=== PATIENT | male | born 1945 | race African-American/Black ===

== ENCOUNTER 2016-11-21 19:57 | Emergency (ER) | payer OTHER ==
[2016-11-21 21:18] LABS: MANUAL DIFF NEEDED? NO
[2016-11-21 21:19] LABS: BASO% 0.6 % (0.0-0.8); EOS# 0.12 X1000 (0.0-0.7); EOS% 3.4 % (0.0-10.0); HEMATOCRIT 41.6 % (42.0-52.0); HEMOGLOBIN 14.3 g/dL (14.0-18.0); LYMPH# 1.42 X1000 (1.2-3.4); LYMPH% 40.3 % (20.5-51.1); MCH 28.9 PG (27-31); MCHC 34.4 g/dL (33-37); MCV 84.2 FL (81-99); MONO# 0.29 X1000 (0.11-0.59); MONO% 8.2 % (1.7-9.3); MPV 9.9 FL (7.4-10.4); NEUT% 47.5 % (42.2-75.2); PLT 171 X1000 (130-400); RBC 4.94 XMIL (4.7-6.1)
[2016-11-21 21:35] LABS: AGAP 9; ALBUMIN 4.3 g/dL (3.5-5.0); ALKALINE PHOSPHATASE 63 U/L (32-122); BUN 11 mg/dL (8-22); CALCIUM 9.4 mg/dL (8.8-10.2); CHLORIDE 105 mmol/L (98-107); COSMO 280; GOT 28 U/L (10-34); GPT 22 U/L (10-44); POTASSIUM 3.5 mmol/L (3.5-5.1); SODIUM 141 mmol/L (136-145); TCO2 27 mmol/L (25-35); TOTAL PROTEIN 6.9 g/dL (6.3-8.3)
[2016-11-21 21:36] LABS: CK PROFILE 310 U/L (24-204)
--- NOTE | 2016-11-21 21:47 | PROVIDER DOCUMENTATION ---
HPI-General Adult - General Chief Complaint: B/P Problems Stated Complaint: ELEVATED B/P Time Seen by Provider: 11/21/16 21:24 Source: patient Allergies/Adverse Reactions: Patient Allergies Allergy/AdvReac Type Severity Reaction Status Date / Time muscle relaxer AdvReac DIZZINESS Uncoded 11/21/16 20:08 Home Medications: Home Medication List Medication Instructions Recorded Confirmed Last Taken Type Bisoprolol Fumarate/Hctz [Ziac 1 tab PO DAILY 11/28/14 11/21/16 04/30/16 History 10-6.25 mg Tablet] Potassium Chloride E.r. [Micro-K] 1 tab PO DAILY 11/28/14 11/21/16 04/30/16 History Amlodipine [Norvasc] 5 mg PO DAILY 07/20/15 11/21/16 04/30/16 History Diphenoxylate/Atropine [Lomotil] 1 each PO 4XDAY PRN PRN #20 tablet 06/19/16 Unknown Rx Promethazine [Phenergan] 1 - 2 tab PO Q6H PRN PRN #18 tablet 06/19/16 Unknown Rx - History of Present Illness -Gen Adult Nature of Presenting Problems: 71 YOBLKM WITH HX OF HTN, PRESENTS TO EED WITH C/O PT STTES HE MISSED HIS MORNING BLOOD PRESSURE MEDS, AND HE FELT LIKER HIS B/P WAS HIGH AND CHECKED B/P AND NOTICED IT WAS ELEVATED AND CAME TO THE ED TO BE CHECKED OUT. PT STATES HE TOOK HIS MEDS ABOUT 30 MINUTES TRENCH [employer] ED. Location of Pain/Injury: reports: none Pain Radiation: reports: no radiation Quality of Pain: reports: none Onset/Duration: reports: 1-3 hours ago Context/Activities at Onset: reports: none Modifying Factors: improves with: nothing Similar Symptoms Previously?: No Recently seen or treated by another doctor?: No Review of Systems - Adult - REVIEW OF SYSTEMS - ADULT Constitutional: denies: chills, fever Eyes: reports: no symptoms reported Ears, Nose, Mouth & Throat: reports: no symptoms reported Cardiovascular: denies: chest pain, palpitations, syncope Respiratory: denies: cough, shortness of breath, wheezing Gastrointestinal: denies: abdominal pain, diarrhea, nausea, vomiting Genitourinary: reports: no symptoms reported Musculoskeletal: denies: back pain, neck pain Integumentary: reports: no symptoms reported Neurological: denies: dizziness/vertigo, headache/migraines, syncope Psychiatric: reports: no symptoms reported Endocrine: reports: no symptoms reported Hematologic/Lymphatic: reports: no symptoms reported Allergic/Immunologic: reports: no symptoms reported All Other Systems: Reviewed and Negative Past History - Adult - PAST MEDICAL HISTORY-ADULT Review of Records: reports: Nursing Assessment Review, Medications Reviewed Cardiovascular: reports: HTN Gastrointestinal: reports: ulcer Genitourinary: reports: prostate cancer - PRIOR SURGERIES/PROCEDURES Surgical/Procedure History: reports: none, reviewed, not pertinent, other ( prostatectomy) - PRIOR HOSPITALIZATIONS Prior Hospitalizations: reports: for other non-related - IMMUNIZATION STATUS Childhood Immunizations: See Nurse Assessment Flu Vaccine: See Nurse Assessment - FAMILY HISTORY Family History: diabetes, HTN - SOCIAL HISTORY Smoking: denies Substance Use: denies Alcohol Use Frequency: never Living Situation: alone Physical Exam-General - CONSTITUTIONAL General Appearance: alert, mild distress - EYES Eyes: PERRL/EOMI, pink conjunctivae - HEAD, EARS, NOSE, MOUTH & THROAT HENMT: normocephalic/atraumatic, moist mucous membranes - NECK Neck: non-tender, full range of motion, supple - RESPIRATORY Respiratory: chest non-tender, lungs clear, normal breath sounds - CARDIOVASCULAR Cardiovascular: normal peripheral pulses, tachycardia - GASTROINTESTINAL (ABDOMEN) Abdominal Exam: normal bowel sounds, non tender, soft - LYMPHATIC Lymphatic: no adenopathy - MUSCULOSKELETAL Back Exam: normal inspection, no CVA tenderness, no vertebral tenderness Extremity: normal range of motion, non-tender - SKIN Integumentary: normal color, normal turgor, warm/dry - NEUROLOGIC Neurologic: grossly normal - PSYCHIATRIC Psych/Mental Status: oriented x 3 Progress - PLAN OF CARE/RESULTS Progress/Plan/Lab Results: Laboratory Tests 11/21/16 11/21/16 11/21/16 21:15 21:15 21:15 WBC RBC Hgb Hct MCV MCH MCHC RDW Std Deviation Plt Count MPV Immature Gran % (Auto) Neut % (Auto) Lymph % (Auto) [place] % (Auto) Eos % (Auto) Baso % (Auto) Immature Gran # (Auto) Neut # (Auto) Lymph # (Auto) [place] # (Auto) Eos # (Auto) Baso # (Auto) Sodium 141 Potassium 3.5 Chloride 105 Carbon Dioxide 27 Anion Gap 9 BUN 11 Creatinine 1.1 Estimated GFR/1.73 m2 > 60 BUN/Creatinine Ratio 10 Glucose 83 Calculated Osmolality 280 Calcium 9.4 Total Bilirubin 0.40 AST 28 ALT 22 Alkaline Phosphatase 63 Creatine Kinase 310 H Creatine Kinase Index 1.2 CK-MB (CK-2) 3.83 Troponin T < 0.010 Nuo-I-Sadzyofvomu Pept 60 Total Protein 6.9 Albumin 4.3 Globulin 3.0 Albumin/Globulin Ratio 2.0 11/21/16 21:15 WBC 3.52 L RBC 4.94 Hgb 14.3 Hct 41.6 L MCV 84.2 MCH 28.9 MCHC 34.4 RDW Std Deviation 13.9 Plt Count 171 MPV 9.9 Immature Gran % (Auto) 0.0 Neut % (Auto) 47.5 Lymph % (Auto) 40.3 [place] % (Auto) 8.2 Eos % (Auto) 3.4 Baso % (Auto) 0.6 Immature Gran # (Auto) 0.00 Neut # (Auto) 1.67 Lymph # (Auto) 1.42 [place] # (Auto) 0.29 Eos # (Auto) 0.12 Baso # (Auto) 0.02 Sodium Potassium Chloride Carbon Dioxide Anion Gap BUN Creatinine Estimated GFR/1.73 m2 BUN/Creatinine Ratio Glucose Calculated Osmolality Calcium Total Bilirubin AST ALT Alkaline Phosphatase Creatine Kinase Creatine Kinase Index CK-MB (CK-2) Troponin T Bum-H-Dttglwvhrdf Pept Total Protein Albumin Globulin Albumin/Globulin Ratio Orders Category Date Time Status Cardiac Monitoring DIRECTED Care 11/21/16 21:00 Active CHEST-2 VIEWS [RAD] Stat Exams 11/21/16 21:00 Taken CBC WITH DIFF [HEME] Stat Lab 11/21/16 21:15 Completed CK PROFILE [SP CHEM] Stat Lab 11/21/16 21:15 Completed COMPREHENSIVE METABOLIC PANEL [CHEM] Stat Lab 11/21/16 21:15 Completed PRO B-NATRIURETIC PEPTIDE Stat Lab 11/21/16 21:15 Completed TROPONIN T Stat Lab 11/21/16 21:15 Completed Clonidine [Catapres] Med 11/21/16 22:03 Discontinued 0.2 mg PO NOW ONE EKG [EKG] Stat Ther 11/21/16 21:00 Ordered Vital Signs - 24 hr 11/21/16 11/21/16 11/21/16 20:06 21:02 21:41 Temperature 98.0 F Pulse Rate 94 H 79 84 Respiratory 16 20 18 Rate Blood Pressure 177/110 167/103 152/107 O2 Sat by Pulse 99 94 L 99 Oximetry - EKG 1 Time of EKG reading by physician:: 21:02 EKG Read and Signed by:: Benji Mccarthy EKG Interpretation (*Must complete 3 of following elements*): Abnormal Rate: 79 Rhythm: NSR [place]: normal QRS: normal GA Interval: normal ST Wave: normal Comments: SEPTAL INFARCT - XRAY 1 XRAY: Bilateral XRAY Study: Chest XRAY Interpretation: NEGATIVE Departure - Departure Time of Disposition Order: 23:52 DIAGNOSIS: HTN (hypertension) Qualifiers: Hypertension type: unspecified secondary hypertension Qualified Code(s): I15.9 - Secondary hypertension, unspecified; I15 - Secondary hypertension Disposition: HOME 01 Certified Medical Emergency: Emergent Condition: Stable Additional Instructions: ED Follow Up Instructions: You have been treated by a care provider in the Emergency Department. These instructions are being provided to you so you can have an understanding of how to care for yourself upon discharge. Upon discharge from the Emergency Department, you are responsible for making arrangements for follow-up care by a physician of your choice. Take all prescribed medications as directed. Return to the Emergency Department immediately for any new or worsening symptoms. You may call the Physician Referral phone number at [phone] to obtain a list of Physicians who are taking new patients. Referrals: Kian Burnette MD [Primary Care Provider] - Forms: Return to School/Parent Work Attestation - Scribe Verification/Attestation Scribe:: Eran Clarke Acting as Scribe for:: Benji Mccarthy Scribe documention review:: This chart was documented by a scribe and accurately reflects the service the provider performed and the decisions made by the provider.
[2016-11-21 21:50] LABS: CK INDEX 1.2 (0.0-2.5); CK-MB 3.83 ng/mL (0.0-5.0)
[2016-11-21] MEDS ORDERED: CATAPRES PO ONE (22:03)
[2016-11-21] MEDS ORDERED: NITROGLYCERIN ONE (22:59)
[2016-11-21] MEDS ORDERED: NITROGLYCERIN TOP ONE (22:59)
[2016-11-22 00:44] VITALS: BP 123/92
--- NOTE | 2016-11-22 01:15 | EKG Report ---
Test Performed on : 11/21/2016 9:01:25 PM Test Reason : dizziness, htn Blood Pressure : / mmHG Vent. Rate : 079 BPM Atrial Rate : 079 BPM P-R Int : 190 ms QRS Dur : 084 ms QT Int : 376 ms P-R-T Axes : 075 005 015 degrees QTc Int : 431 ms Normal sinus rhythm. Septal infarct , age undetermined Abnormal ECG When compared with ECG of 02-AUG-2016 15:02, Septal infarct is now present Nonspecific T wave abnormality has replaced inverted T waves in Inferior leads Unconfirmed Result
--- NOTE | 2016-11-22 10:29 | Diag Imaging Result Document ---
PROCEDURE NAME: CHEST-2 VIEWS - 11/21/2016 CHEST 2 VIEWS: Compared with 04/30/2016. FINDINGS: Heart size appears within normal limits. There is tortuosity of the thoracic aorta similar to the previous exam. Inspiration is mildly shallow. The lungs appear clear. There is no pleural effusion or pneumothorax seen. IMPRESSION: Mildly shallow inspiration. No other evidence of acute disease. There is tortuosity of the thoracic aorta noted.
== END 2016-11-22 00:46 | disposition home or self-care (01) ==
LOC: P.ED 19:57
DX: I15.9 Secondary hypertension, unspecified (principal); R94.31 Abnormal electrocardiogram [ECG] [EKG]; I10 Essential (primary) hypertension; R00.0 Tachycardia, unspecified; Z85.46 Personal history of malignant neoplasm of prostate; Z79.899 Other long term (current) drug therapy; Z83.3 Family history of diabetes mellitus; Z82.49 Family history of ischemic heart disease and other diseases of the circulatory system
CPT/HCPCS: 71020; 80053; 82550; 82553; 83880; 84484; 85025; 93005; 99284